=== PATIENT | male | born 1950 | race Caucasian/White ===

== ENCOUNTER 2017-10-27 18:17 | Inpatient (IN) | payer OTHER ==
[~2017-10-27] VITALS: Ht 170.2 cm; Wt 53.1 kg
[2017-10-27] MEDS ORDERED: AMLO10TA2 PO (18:49)
[2017-10-27] MEDS ORDERED: HYDR-548 PO (18:49)
[2017-10-27] MEDS ORDERED: ALPR2TAB2 PO (18:49)
[2017-10-27 19:59] VITALS: BP_SYST 148; BP_SYST 159; BP_DIAS 88; BP_DIAS 90
--- NOTE | 2017-10-27 20:15 | NUR ---
ADMISSION NOTES ADMITTED THIS 66Y/O MALE PATIENT ADMIT FROM [facility] , PT. INTIALLY CAME FROM HOME. PT IS ON 5150 HOLD FOR GD , PER HOLD PARANOID HEARING VOICES AND VISUAL HALLUCINATION NOT EATEN FOR SEVERAL DAYS DISORGNIZED THOUGHTS, UNABLE TO SELF CARE. UPON FACE TO FACE ASSESSMENT PATIENT IS A&O X-2,3 ,ANXIOUS COOPERTIVE, PT. IS POOR HISTORIAN, POOR INSIGHT ,POOR JUDGEMENT ,V/S WNL, NO ACUTE DISTRESS NOTED, HX OF BIPOLAR ,ANXIETY ,HTN,OSTEOARTHRITIS, CHRONIC PAIN HEP-C , AWARE AND NOTIFIED OF THE ADMISSION,PT.REFUSED SKIN ASSESSMENT. ENCOURAGED FOR SKIN ASSESSMENT ,PT.STATED MY SKIN IS FINE, ENCOURAGED PT. VERBALIZED ANY FEELING CONCERN TO STAFF, ORIENT TO UNIT POLICY, WILL CONTINUE TO MONITOR FOR Q15 SAFETY AND BEHAVIOR.
[2017-10-27] MEDS ORDERED: ACETAMINOPHEN 325 MG TABLET PO PRN (20:30)
[2017-10-27] MEDS ORDERED: MAGNESIUM HYDROXIDE 30 ML UDC PO PRN (20:30)
[2017-10-27] MEDS ORDERED: MAG HYDROX/AL HYDROX/SIMETH 30 ML UDC PO PRN (20:30)
[2017-10-27] MEDS ORDERED: TEMAZEPAM 7.5 MG CAPSULE ONE (21:15)
[2017-10-27] MEDS ORDERED: ACETAMINOPHEN 325 MG TABLET ONE (21:16)
[2017-10-27] MEDS: TEMAZEPAM 7.5 MG CAPSULE PO PRN (21:41)
[2017-10-28] MEDS ORDERED: HYDROCODONE/APAP 10/325MG 1 EA TABLET ONE (01:18)
[2017-10-28] MEDS: HYDROCODONE/APAP 10/325MG 1 EA TABLET PO PRN ×2 (01:20→09:45)
--- NOTE | 2017-10-28 01:20 | NUR ---
GPS RN NOTES PT. C/O GENERAL BODY PAIN , ADMINISTRED NARCO 10-325 MG PRN PER PT. REQUEST, V/S WNL WILL MONITOR FOR EFFECTIVENESS.
--- NOTE | 2017-10-28 06:00 | NUR ---
GPS RN NOTES: PT. REFUSED SKIN ASSESSMENT ,ID PICTURE , ENCOURAGED FOR SKIN ASSESSMENT PT. STILL REFUSED
[2017-10-28 07:33] LABS: ALBUMIN 3.3 g/dL (3.4-5.0); BILIRUBIN,TOTAL 0.5 mg/dL (0.2-1.0); CALCIUM, SERUM 9.2 mg/dL (8.5-10.1); CREATININE 1.3 mg/dL (0.6-1.3); POTASSIUM 3.7 mmol/L (3.5-5.1); TOTAL PROTEIN, SERUM 6.8 g/dL (6.4-8.2)
[2017-10-28 07:40] LABS: CHOLESTEROL 126 mg/dL (<200); HDL CHOLESTEROL 66 mg/dL (40-60); LDL 58 mg/dL (0-99); TRIGLYCERIDES 31 mg/dL (30-150)
[2017-10-28 08:00] VITALS: BP 144/111
[2017-10-28] MEDS: AMLODIPINE BESYLATE 10 MG TABLET PO SCH (08:46)
[2017-10-28] MEDS: LORAZEPAM 0.5 MG TABLET PO PRN ×2 (08:46→14:49)
--- NOTE | 2017-10-28 08:47 | NUR ---
RN NOTES ADMINISTERED ATIVAN 0.5 MG PO PRN FOR ANXIETY, PARANOIA, V/S TAKEN BP-142/ 100, P-89, CONTINUED MONITORING.
--- NOTE | 2017-10-28 09:45 | NUR ---
RN NOTES PATIENT C/O PAIN 9/ LOWER BACK, ADMINISTERED NARCO 10/325 MG PO PRN PER PATIENT REQUEST, V/S TAKEN BP -144/100, P-89, ENCOURAGED TO INCREASE FLUID INTAKE. CONTINUED MONITORING, FAMILY NEXT TO THE PATIENT IN THE DINING ROOM.
--- NOTE | 2017-10-28 12:37 | NUR ---
Initial Discharge Plan: Patient resides with his at [address] [place] [id number] / [phone] and would like to return there upon discharge. Patient's , Cassie Long [phone], is in agreement and seems to be supportive of her . SW will provide patient with substance abuse / alcohol abuse resources upon discharge. SW to follow up with MD. SW will facilitate a safe and proper discharge plan.
--- NOTE | 2017-10-28 14:49 | NUR ---
RN NOTES ADMINISTERED ATIVAN 0.5 MG PO PRN PER PATIENT REQUEST FOR ANXIETY, V/S TAKEN BP-132/86, P-90, CONTINUED MONITORING.
[2017-10-28 16:00] VITALS: BP 132/86
[2017-10-28] MEDS: OLANZAPINE 2.5 MG TABLET PO SCH (16:08)
[2017-10-28] MEDS: ALPRAZOLAM 0.25 MG TABLET PO SCH (16:08)
[2017-10-28] MEDS: DIVALPROEX SODIUM 250 MG TABLET.DR PO SCH ×2 (16:08→21:25)
[2017-10-28] MEDS: TEMAZEPAM 7.5 MG CAPSULE PO PRN (21:26)
[2017-10-28 21:50] VITALS: BP 139/64
[2017-10-29 07:20] LABS: BASOPHILS % (AUTO) 0.3 % (0.0-2.0); EOSINOPHILS # (AUTO) 0.5 /CMM (0.0-0.7); EOSINOPHILS % (AUTO) 5.3 % (0.0-6.0); HEMATOCRIT 41 % (39-51); HEMOGLOBIN 13.6 g/dL (13.5-17.5); LYMPHOCYTES # (AUTO) 2.3 /CMM (0.8-4.8); LYMPHOCYTES % (AUTO) 27.1 % (20.0-44.0); MEAN CORPUSCULAR HEMOGLOBIN 28 PG (26.0-33.0); MEAN CORPUSCULAR HGB CONC 33 g/dl (31.0-36.0); MEAN CORPUSCULAR VOLUME 85 fL (80-96); MONOCYTES # (AUTO) 0.7 /CMM (0.1-1.30); MONOCYTES % (AUTO) 8.6 % (2.0-12.0); NEUTROPHILS % (AUTO) 58.7 % (43.0-81.0); PLATELET COUNT (AUTO) 288 /CMM (150-450); RDW COEFFICIENT OF VARIATION 13.6 (11.5-15.0); RED BLOOD CELL COUNT(AUTO) 4.89 MIL/uL (4.5-6.0); WHITE BLOOD COUNT (AUTO) 8.5 K/uL (4.3-11.0)
[2017-10-29 08:00] VITALS: BP 156/95
[2017-10-29] MEDS: OLANZAPINE 2.5 MG TABLET PO SCH (09:33)
[2017-10-29] MEDS: DIVALPROEX SODIUM 250 MG TABLET.DR PO SCH ×2 (09:33→21:06)
[2017-10-29] MEDS: ALPRAZOLAM 0.25 MG TABLET PO SCH ×2 (09:33→17:11)
[2017-10-29] MEDS: AMLODIPINE BESYLATE 10 MG TABLET PO SCH (09:33)
--- NOTE | 2017-10-29 11:22 | NUR ---
UR Review: ERASTO called [facility]'s clinical review line and spoke with Brent, . Brent transferred patient to assigned dependency case manager's voicemail box for clinical review. ERASTO left a detailed clinical for Manasa Posey [phone] ext. [phone], and requested authorization. In the review, ERASTO stated that patient was hallucinating as of yesterday and that he was only recently started on medication to manage bipolar disorder. ERASTO provided the direct contact information for her voicemail box, and fax number. ERASTO also provided ERASTO Du's number in the event of an urgent matter. ERASTO to follow up. AUTHORIZATION#[id number]
[2017-10-29 16:11] VITALS: BP 125/95
--- NOTE | 2017-10-29 16:57 | NUR ---
UR Review: ERASTO faxed clinicals (face sheet, hold paper, medication list, MH & P, PH and P and progress notes) to [facility], . ERASTO will follow up.
[2017-10-29] MEDS: HYDROCODONE/APAP 10/325MG 1 EA TABLET PO PRN (19:52)
[2017-10-29 19:55] VITALS: BP 140/91
[2017-10-29] MEDS: OLANZAPINE 5 MG TABLET PO SCH (21:06)
[2017-10-29 21:07] VITALS: BP 138/92
[2017-10-30 08:00] VITALS: BP 153/88
[2017-10-30] MEDS: AMLODIPINE BESYLATE 10 MG TABLET PO SCH (08:34)
[2017-10-30] MEDS: DIVALPROEX SODIUM 250 MG TABLET.DR PO SCH (08:35)
[2017-10-30] MEDS: OLANZAPINE 2.5 MG TABLET PO SCH (08:35)
[2017-10-30] MEDS: ALPRAZOLAM 0.25 MG TABLET PO SCH ×2 (08:35→17:37)
--- NOTE | 2017-10-30 11:23 | NUR ---
UR Review: ERASTO called Sarai from [facility], to inquire about the status of authorization for patient. Sarai stated that they did not receive the clinical faxed yesterday. ERASTO re-faxed the clinical to fax #[phone] and confirmed that it was received. When ERASTO spoke with Sarai on the phone, Sarai stated that the patient will "probably" be authorized through Saturday. SW to follow up and confirm.
--- NOTE | 2017-10-30 14:26 | NUR ---
UR Review: ERASTO left a voicemail for patient's patient case coordinator, Sarai from [facility], , inquiring about the status of authorization. SW provided direct contact information.
[2017-10-30 15:56] VITALS: BP 111/83
--- NOTE | 2017-10-30 19:30 | NUR ---
GPS RN NOTE, RECEIVED PATIENT AWAKE AND IN BED HAS A COMPLAINT OF CHRONIC BILATERAL FOOT PAIN AT 8 OUT 10 PAIN ON PAIN SCALE. PATIENT IS TAKING ORAL PAIN MEDICATION FOR THIS PAIN. PATIENT IS DISPLAYING NO S/S OF APPARENT DISTRESS AT THIS TIME. PATIENT BREATHING IS UNLABORED WITH EQUAL RISE AND FALL OF THE CHEST. PATIENT IS ALERT AND ORIENTED X 3 ON ROOM AIR WITH A SPOO2 97 %. PATIENT HAS ONE TO ONE SITTER FOR SAFETY. PATIENT IS COMPLAINT WITH MEDICATION, ANXIOUS AT TIMES, COOPERATIVE, DISORGANIZED, AND NEEDS REORIENTATION. PATIENT HAS ONE TO ONE SITTER FOR SAFETY. PATIENT DENIES SUICIDE IDEATIONS AND HOMICIDAL IDEATIONS AT THIS TIME. PATIENT ASSISTED WITH TURNING AND REPOSITIONING Q2HR AND PRN FOR COMFORT AND CIRCULATION. PATIENT HAS NO NEEDS AT THIS TIME. PATIENT EDUCATED ON THE USE OF THE CALL LUBIN. PATIENT BED SIDE RAILS UP X 2 FOR SAFETY. PATIENT BED IS LOCKED AND LOW WILL CONTINUE TO MONITOR AND MAINTAIN SAFETY Q15 MIN WITH THE HELP OF STAFF.
[2017-10-30] MEDS: OLANZAPINE 5 MG TABLET PO SCH (20:22)
[2017-10-30 20:32] VITALS: BP 140/77
[2017-10-30] MEDS: HYDROCODONE/APAP 10/325MG 1 EA TABLET PO PRN (22:41)
--- NOTE | 2017-10-30 22:41 | NUR ---
GPS RN NOTE, PATIENT HAS A COMPLAINT OF LOWER BACK PAIN AT 5 OUT 10 ON THE PAIN SCALE AND IS REQUESTING NORCO AT THIS TIME. PATIENT VITAL SIGNS ARE STABLE. GAVE NORCO 10-325 1 TAB PO Q6HR PRN ORDERED. WILL REASSESS PAIN AND I WILL CONTINUE TO MONITOR THIS PATIENT.
[2017-10-31] MEDS: TEMAZEPAM 7.5 MG CAPSULE PO PRN (00:03)
--- NOTE | 2017-10-31 00:03 | NUR ---
GPS RN NOTE, PATIENT HAS A COMPLAINT OF NOT BEING ABLE TO SLEEP AND IS REQUESTING A SLEEPING AID AT THIS TIME. PATIENT VITAL SIGNS ARE STABLE. GAVE RESTORIL 7.5MG PO HS ORDERED. WILL REASSESS FOR INSOMNIA AND I WILL CONTINUE TO MONITOR THIS PATIENT.
[2017-10-31 08:00] VITALS: BP 138/91
--- NOTE | 2017-10-31 08:25 | NUR ---
GPS RN NOTE: PATIENT HAS A COMPLAINT OF GENERALIZED PAIN REQUESTING NORCO AT THIS TIME. PATIENT VITAL SIGNS ARE STABLE. GAVE NORCO 10-325 1 TAB PO Q6HR PRN ORDERED. WILL REASSESS PAIN AND I WILL CONTINUE TO MONITOR THIS PATIENT.
[2017-10-31] MEDS: HYDROCODONE/APAP 10/325MG 1 EA TABLET PO PRN (08:27)
[2017-10-31] MEDS: ALPRAZOLAM 0.25 MG TABLET PO SCH ×2 (08:28→16:12)
[2017-10-31] MEDS: AMLODIPINE BESYLATE 10 MG TABLET PO SCH (08:28)
[2017-10-31] MEDS: OLANZAPINE 2.5 MG TABLET PO SCH ×2 (08:28→12:32)
--- NOTE | 2017-10-31 11:02 | NUR ---
UR Review: SW called and spoke with pt's pillowcase maker Sarai from [facility], . Sarai stated that the tracking number for patient was [id number]. Sarai also provided SW with follow-up appointments for patient.
--- NOTE | 2017-10-31 12:49 | NUR ---
UR Update: faxed progress notes to Sarai case picker from [facility], / fax #[phone]. Tracking #[id number]
[2017-10-31 16:00] VITALS: BP 118/77
[2017-10-31 20:00] VITALS: BP 112/64
[2017-10-31] MEDS ORDERED: OLANZAPINE 5 MG TABLET PO SCH (20:00)
[2017-10-31] MEDS: LORAZEPAM 0.5 MG TABLET PO PRN ×2 (20:10→21:27)
[2017-10-31] MEDS: DIVALPROEX SODIUM 250 MG TABLET.DR PO SCH (21:29)
[2017-11-01] MEDS: HYDROCODONE/APAP 10/325MG 1 EA TABLET PO PRN ×3 (05:04→23:38)
[2017-11-01 08:00] VITALS: BP 132/85
[2017-11-01] MEDS: AMLODIPINE BESYLATE 10 MG TABLET PO SCH (08:33)
[2017-11-01] MEDS: ALPRAZOLAM 0.25 MG TABLET PO SCH ×2 (08:33→17:00)
[2017-11-01] MEDS: OLANZAPINE 2.5 MG TABLET PO SCH ×2 (08:33→12:05)
[2017-11-01] MEDS: DOCUSATE SODIUM 100 MG CAPSULE PO SCH ×2 (09:01→17:00)
--- NOTE | 2017-11-01 10:10 | NUR ---
UR Update: Tracking #[id number] SW faxed progress notes to Sarai, piano case and bench assembler from [facility], / fax #[phone], for the date of 11/01/17.
--- NOTE | 2017-11-01 11:37 | NUR ---
UR Update: ERASTO left a voicemail clinical update for director of casework Manasa Posey [phone] ext. [phone], from [employer].
[2017-11-01 16:00] VITALS: BP 124/73
[2017-11-01 20:00] VITALS: BP 120/77
[2017-11-01] MEDS: LORAZEPAM 0.5 MG TABLET PO PRN (21:41)
[2017-11-01] MEDS: DIVALPROEX SODIUM 250 MG TABLET.DR PO SCH (21:42)
[2017-11-01] MEDS: OLANZAPINE 5 MG TABLET PO SCH (21:46)
[2017-11-01] MEDS: TEMAZEPAM 7.5 MG CAPSULE PO PRN ×2 (23:35→23:36)
[2017-11-02 08:00] VITALS: BP 128/97
[2017-11-02 08:28] LABS: BASOPHILS % (AUTO) 0.5 % (0.0-2.0); EOSINOPHILS # (AUTO) 0.4 /CMM (0.0-0.7); HEMATOCRIT 38 % (39-51); HEMOGLOBIN 12.4 g/dL (13.5-17.5); LYMPHOCYTES % (AUTO) 53.9 % (20.0-44.0); MEAN CORPUSCULAR HEMOGLOBIN 28 PG (26.0-33.0); MEAN CORPUSCULAR HGB CONC 33 g/dl (31.0-36.0); MEAN CORPUSCULAR VOLUME 85 fL (80-96); MONOCYTES # (AUTO) 0.4 /CMM (0.1-1.30); NEUTROPHILS % (AUTO) 33.6 % (43.0-81.0); PLATELET COUNT (AUTO) 272 /CMM (150-450); RDW COEFFICIENT OF VARIATION 13.1 (11.5-15.0); RED BLOOD CELL COUNT(AUTO) 4.45 MIL/uL (4.5-6.0); WHITE BLOOD COUNT (AUTO) 5.8 K/uL (4.3-11.0)
[2017-11-02] MEDS: ALPRAZOLAM 0.25 MG TABLET PO SCH ×2 (08:48→16:45)
[2017-11-02] MEDS: AMLODIPINE BESYLATE 10 MG TABLET PO SCH (08:48)
[2017-11-02] MEDS: DOCUSATE SODIUM 100 MG CAPSULE PO SCH ×2 (08:48→16:45)
[2017-11-02] MEDS: OLANZAPINE 2.5 MG TABLET PO SCH ×2 (08:48→12:57)
[2017-11-02 08:53] LABS: BILIRUBIN,TOTAL 0.3 mg/dL (0.2-1.0); CALCIUM, SERUM 9.2 mg/dL (8.5-10.1); TOTAL PROTEIN, SERUM 6.4 g/dL (6.4-8.2)
[2017-11-02 11:21] LABS: EOSINOPHILS % (MANUAL) 6 % (0-4); LYMPHOCYTES % (MANUAL) 51 % (16-48); MONOCYTES % (MANUAL) 6 % (0-11.0); NEUTROPHILS % (MANUAL) 37 (42-76)
--- NOTE | 2017-11-02 11:57 | NUR ---
DR. REYNOSO GAVE AN ORDER TO CHANGE SERVICE TO DR. COCHRAN.
[2017-11-02] MEDS: HYDROCODONE/APAP 10/325MG 1 EA TABLET PO PRN (18:36)
--- NOTE | 2017-11-02 18:38 | NUR ---
GPS/RN-NOTES PATIENT C/O 06/13 BOTH FEET PAIN. NORCO 10MG /325MG 1 TAB. P.O GIVEN PRN ORDER. WILL CONT.MONITORING FOR SAFETY.
[2017-11-02 20:00] VITALS: BP 111/78
[2017-11-02] MEDS: OLANZAPINE 5 MG TABLET PO SCH (20:00)
[2017-11-02] MEDS: DIVALPROEX SODIUM 250 MG TABLET.DR PO SCH (21:57)
[2017-11-02] MEDS: TEMAZEPAM 7.5 MG CAPSULE PO PRN (21:58)
[2017-11-02] MEDS ORDERED: LIDOCAINE 5% (PATCH) 1 EA PATCH TP ONE (22:18)
[2017-11-02] MEDS: LIDOCAINE 5% (PATCH) 1 EA PATCH TP SCH (22:20)
[2017-11-03] MEDS: HYDROCODONE/APAP 10/325MG 1 EA TABLET PO PRN (03:35)
[2017-11-03 07:58] LABS: VALPROIC ACID 53 ug/mL (50-100)
[2017-11-03 08:00] VITALS: BP 156/88
[2017-11-03 08:02] LABS: ALANINE AMINOTRANSFERASE 67 U/L (12-78); ASPARTATE AMINOTRANSFERASE 35 U/L (15-37)
[2017-11-03] MEDS: AMLODIPINE BESYLATE 10 MG TABLET PO SCH (09:30)
[2017-11-03] MEDS: DOCUSATE SODIUM 100 MG CAPSULE PO SCH ×2 (09:31→17:06)
[2017-11-03] MEDS: ALPRAZOLAM 0.25 MG TABLET PO SCH ×2 (09:31→17:06)
[2017-11-03] MEDS: OLANZAPINE 2.5 MG TABLET PO SCH (09:31)
--- NOTE | 2017-11-03 13:50 | NUR ---
ASSUMED CARE, RECEIVED PT. AWAKE IN BED, RESPONSIVE TO STAFF. NO SIGN OF DISTRESS AND NO AGITATION NOTED. WILL CONTINUE TO MONITOR FOR SAFETY. Addendum: 11/03/17 at 1359 by JONATHAN GARSIA RN WRONG PT.
--- NOTE | 2017-11-03 13:58 | NUR ---
ASSUMED CARE: RECEIVED PT. AWAKE IN BED, WAS ASKING FOR A SANDWICH. NO DISTRESS AND NO AGITATION NOTED. WILL CONTINUE TO MONITOR FOR SAFETY.
[2017-11-03 16:02] VITALS: BP 144/65
[2017-11-03] MEDS ORDERED: LORATADINE 10 MG TABLET ONE (20:15)
[2017-11-03] MEDS: LIDOCAINE 5% (PATCH) 1 EA PATCH TP SCH (20:24)
[2017-11-03] MEDS: OLANZAPINE 5 MG TABLET PO SCH (20:25)
[2017-11-03] MEDS: LORATADINE 10 MG TABLET PO SCH (20:25)
[2017-11-03] MEDS: DIVALPROEX SODIUM 250 MG TABLET.DR PO SCH (21:41)
--- NOTE | 2017-11-03 21:42 | NUR ---
RN NOTE :PATIENT REQUEST CLARITIN 10MG.
--- NOTE | 2017-11-03 23:00 | NUR ---
GPS RN NOTE, RECEIVED PATIENT AWAKE AND IN BED HAS A COMPLAINT OF CHRONIC BILATERAL FOOT PAIN AT 4 OUT 10 PAIN ON PAIN SCALE. PATIENT IS TAKING ORAL PAIN MEDICATION FOR THIS PAIN. PATIENT IS DISPLAYING NO S/S OF APPARENT DISTRESS AT THIS TIME. PATIENT BREATHING IS UNLABORED WITH EQUAL RISE AND FALL OF THE CHEST. PATIENT IS ALERT AND ORIENTED X 3 ON ROOM AIR WITH A SPOO2 99 %. PATIENT HAS ONE TO ONE SITTER FOR SAFETY. PATIENT IS COMPLAINT WITH MEDICATION, ANXIOUS AT TIMES, COOPERATIVE, DISORGANIZED, AND NEEDS REORIENTATION. PATIENT DENIES SUICIDE IDEATIONS AND HOMICIDAL IDEATIONS AT THIS TIME. PATIENT ASSISTED WITH TURNING AND REPOSITIONING Q2HR AND PRN FOR COMFORT AND CIRCULATION. PATIENT HAS NO NEEDS AT THIS TIME. PATIENT EDUCATED ON THE USE OF THE CALL LUBIN. PATIENT BED SIDE RAILS UP X 2 FOR SAFETY. PATIENT BED IS LOCKED AND LOW WILL CONTINUE TO MONITOR AND MAINTAIN SAFETY Q15 MIN WITH THE HELP OF STAFF.
[2017-11-04 08:00] VITALS: BP 138/90
[2017-11-04] MEDS: LORATADINE 10 MG TABLET PO SCH (09:17)
[2017-11-04] MEDS: AMLODIPINE BESYLATE 10 MG TABLET PO SCH (09:17)
[2017-11-04] MEDS: OLANZAPINE 2.5 MG TABLET PO SCH (09:17)
[2017-11-04] MEDS: ALPRAZOLAM 0.25 MG TABLET PO SCH ×2 (09:17→17:12)
[2017-11-04] MEDS: DIVALPROEX SODIUM 250 MG TABLET.DR PO SCH ×2 (09:17→22:23)
[2017-11-04] MEDS: DOCUSATE SODIUM 100 MG CAPSULE PO SCH ×2 (09:17→17:12)
[2017-11-04 16:01] VITALS: BP 109/74
[2017-11-04 20:00] VITALS: BP 107/75
[2017-11-04] MEDS: OLANZAPINE 5 MG TABLET PO SCH (20:32)
--- NOTE | 2017-11-04 21:00 | NUR ---
GPS RN NOTES: PATIENT HAS AN ORDER FOR LIDODERM 5% PATCH. [facility] IS OUT OF STOCK. INFORMED SCOOTER SOUTH SHE SAID TO CHECK IN OTHER UNIT, CHARGE NURSE FROM [facility] PULLED OUT LIDODERM 5% PATCH FROM [facility] UNIT. CHARGE NURSE LILLY MADE AWARE WELL THE BIG DATA HADOOP DEVELOPER.
[2017-11-04] MEDS: HYDROCODONE/APAP 10/325MG 1 EA TABLET PO PRN (21:07)
[2017-11-04] MEDS: TEMAZEPAM 7.5 MG CAPSULE PO PRN (21:32)
[2017-11-04] MEDS ORDERED: LIDOCAINE 5% (PATCH) 1 EA PATCH TP ONE (22:13)
[2017-11-04] MEDS: LIDOCAINE 5% (PATCH) 1 EA PATCH TP SCH (22:18)
[2017-11-05 08:00] VITALS: BP 126/92
[2017-11-05] MEDS: DIVALPROEX SODIUM 250 MG TABLET.DR PO SCH ×2 (08:07→21:15)
[2017-11-05] MEDS: ALPRAZOLAM 0.25 MG TABLET PO SCH ×2 (08:07→16:55)
[2017-11-05] MEDS: AMLODIPINE BESYLATE 10 MG TABLET PO SCH (08:07)
[2017-11-05] MEDS: DOCUSATE SODIUM 100 MG CAPSULE PO SCH ×2 (08:07→16:54)
[2017-11-05] MEDS: OLANZAPINE 2.5 MG TABLET PO SCH (08:08)
[2017-11-05] MEDS: LORATADINE 10 MG TABLET PO SCH (09:06)
--- NOTE | 2017-11-05 10:06 | NUR ---
RN-CO: Patient has bright affect, pleasant, calm and cooperative to care. He denied SI/HI, denied command hallucination. Patient denied pain and discomforts at this time. He wants to go home because [birth year]'s [birth year].
--- NOTE | 2017-11-05 11:56 | NUR ---
UR Update: ERASTO called and left a detailed voicemail clinical update for case management rn Manasa Sheets. [phone] ext. [phone], from [employer]. ERASTO also notified Manasa that patient's psychiatrist has changed. ERASTO left her contact information on the voicemail.
--- NOTE | 2017-11-05 13:41 | NUR ---
ERASTO notified that attending psychiatrist, Dr. Ureña, that patient is under [employer] insurance and that, on Saturday, SW was notified that a peer to peer review might be conducted. ERASTO will update psychiatrist as she obtains more information from the insurance.
[2017-11-05 15:44] VITALS: BP 112/63
--- NOTE | 2017-11-05 16:32 | NUR ---
RN-CO: Patient remained calm and cooperative. Noticed with good impulse control. Denied visual and auditory hallucination.
[2017-11-05] MEDS: OLANZAPINE 5 MG TABLET PO SCH (20:01)
[2017-11-05] MEDS: LIDOCAINE 5% (PATCH) 1 EA PATCH TP SCH (20:02)
[2017-11-05 20:43] VITALS: BP 122/74
[2017-11-06 07:50] LABS: ALANINE AMINOTRANSFERASE 73 U/L (12-78); ASPARTATE AMINOTRANSFERASE 39 U/L (15-37)
[2017-11-06 07:59] LABS: VALPROIC ACID 61 ug/mL (50-100)
--- NOTE | 2017-11-06 08:22 | NUR ---
Discharge Note: Patient will be discharged home to [address] [place] [address] / [phone] with his . Patient will be picked up by his , Cassie Long [phone], in her private vehicle. Patient has a follow-up appointment with his psychiatric Nurse Practitioner, Deep Jimenez on November 28, 2017 at 11:45am at [address] [facility] [address] [place] [address] / . Patient was encouraged to discuss his substance use with his DIE TESTER at that time. Patient will also follow up with his therapist, Dr. Cha Darnell on November 08 2017 at 9am at [address] [facility] [address] [place] [address] / . Patient was also referred to [facility] [address] [facility] . Patient was also referred to [facility] [address] [place] [phone] and was encouraged to present on November 11 at 11am. Additional referrals include [facility] [address] [place] [address] and [facility] [id number] [place] [address] , a facility that takes walk-ins after 9am for intake screening.
[2017-11-06] MEDS: DIVALPROEX SODIUM 250 MG TABLET.DR PO SCH (08:33)
[2017-11-06] MEDS: OLANZAPINE 2.5 MG TABLET PO SCH (08:33)
[2017-11-06] MEDS: DOCUSATE SODIUM 100 MG CAPSULE PO SCH (08:33)
[2017-11-06] MEDS: ALPRAZOLAM 0.25 MG TABLET PO SCH (08:33)
[2017-11-06] MEDS: LORATADINE 10 MG TABLET PO SCH (08:34)
[2017-11-06] MEDS: AMLODIPINE BESYLATE 10 MG TABLET PO SCH (08:34)
[2017-11-06 09:36] VITALS: BP 116/100
--- NOTE | 2017-11-06 10:11 | NUR ---
GPS/STAFFING MGR NOTE: PATIENT DISCHARGED HOMED TO [address] [place] [id number] WITH [facility] PICKED UP. PT IN STABLE CONDITION NO S/S DISTRESS NOTED PATIENT CALM AND COOPERATIVE VSS WNL, DENIES SUICIDAL AND HOMICIDAL IDEATIONS . EXIT CARE DONE PRINTED, SIGN AND GIVEN TO PT. MEDICATIONS RX GIVEN AND EXPLAIN TO PT AND . ALL BELONGINGS AND VALUABLES RETURNED TO PT, PT REFUSED SKIN ASSESSMENT.
--- NOTE | 2017-11-07 08:24 | NUR ---
UR Update: informed disability case manager Jake [taking over for Manasa Sheets]. [phone] ext. [phone], from [employer] of patient's discharge.
== END 2017-11-06 10:40 | disposition home or self-care (01) | DRG 885 ==
LOC: GPSOV1 18:17 → GPS 18:24
PROVIDERS: ADMIT Psychiatry & Neurology Psychosomatic Medicine; ATTEND Psychiatry & Neurology Psychosomatic Medicine
DX: F25.0 Schizoaffective disorder, bipolar type (principal); E44.0 Moderate protein-calorie malnutrition; F29 Unspecified psychosis not due to a substance or known physiological condition; F39 Unspecified mood [affective] disorder; F12.90 Cannabis use, unspecified, uncomplicated; G89.29 Other chronic pain; K59.00 Constipation, unspecified; M54.30 Sciatica, unspecified side; Z87.891 Personal history of nicotine dependence; Z73.6 Limitation of activities due to disability; F19.10 Other psychoactive substance abuse, uncomplicated; D63.8 Anemia in other chronic diseases classified elsewhere
CPT/HCPCS: 36415; 80053-TC; 80061-TC; 80164-TC; 84450-TC; 84460-TC; 85025-TC; 87081-TC; 97110-TC; 97116-TC; 97530-TC